=== PATIENT | female | born 1945 | race Caucasian/White ===

== ENCOUNTER 2019-11-08 07:44 | Observation (INO) | payer MEDICARE ==
[2019-11-08 08:42] LABS: #Eosinphils 0.1 thou/uL (0.0-0.7); #Monocytes 0.7 thou/uL (0.11-0.59); #Neutrophils 5.1 thou/uL (1.40-6.50); %Basophils 0.1 % (0.0-1.0); %Eosinophils 1.5 % (0.0-10.0); %Lymphocytes 14.2 % (21.0-51.0); %Monocytes 10.4 % (0.0-10.0); %Neutrophils 73.8 % (42.0-75.0); Mean Corpuscular HGB CONC 33.7 g/dL (32.0-36.0); Mean Corpuscular Hemoglobin 31.7 pg (27.0-31.0); Mean Corpuscular Volume 94.1 fL (78.0-98.0); Mean Platelet Volume 9.9 fL (7.4-10.4); Platelet Count 125 thou/uL (130-400); RBC Distribution Width 13.1 % (11.5-14.5); Red Blood Cell (RBC) Count 4.73 mill/uL (4.20-5.40); White Blood Cell (WBC) Count 6.9 thou/uL (4.8-10.8)
[2019-11-08 08:48] LABS: ALT (SGPT) 22 U/L (8-55); AST (SGOT) 25 U/L (5-34); Albumin 3.9 g/dL (3.4-4.8); Alcohol Less than 10 mg/dL (Less than 10); Alkaline Phosphatase 76 U/L (40-110); Anion Gap 13 mmol/L (10-20); BUN (Urea Nitrogen) 12 mg/dL (9.8-20.1); Bilirubin, Total 0.6 mg/dL (0.2-1.2); Calc. Creatinine Clearance 0 mL/min (70-130); Calcium 9.1 mg/dL (7.8-10.44); Carbon Dioxide 23 mmol/L (23-31); Chloride 110 mmol/L (98-107); Estimated GFR-MDRD 69; Globulin 2.3 g/dL (2.4-3.5); Glucose 110 mg/dL (83-110); Protein, Total 6.2 g/dL (6.0-8.3); Sodium 143 mmol/L (136-145)
[2019-11-08 08:51] LABS: Potassium 2.7 mmol/L (3.5-5.1)
--- NOTE | 2019-11-08 09:04 | CT ---
EXAM: CT brain without contrast HISTORY: Altered mental status COMPARISON: None TECHNIQUE: Multiple contiguous axial images were obtained and a CT of the brain without contrast. FINDINGS: There are hypodense regions in the left temporal lobe and right parietal lobe. Minimal volu me loss is seen in these could represent subacute rather than remote infarctions. There is no evidence of hydrocephalus, intracranial hemorrhage, or extra-axial fluid collection. The calvarium and overlying soft tissues are unremarkable. The visualized paranasal sinuses and masto id air cells are well aerated. IMPRESSION: Subacute versus remote infarctions in the left temporal and right parietal lobes. An MRI of the brain is recommended for further characterization.
[2019-11-08 09:07] LABS: Bilirubin Negative (Negative); Blood, Urine Trace (Negative); Clarity Turbid (Clear); Glucose, Urine (Dipstick) Normal (Negative); Leukocyte 75 Leu/uL (Negative); Nitrite 1+ (Negative); Protein, Urine (Dipstick) 10 mg/dL (Neg-Trace); RBC/HPF 0-3 HPF (0-3)
[2019-11-08 09:08] LABS: Bacteria/HPF 1+ HPF (None Seen)
[2019-11-08] MEDS ORDERED: Potassium Chloride 20 MEQ TAB ONE (09:08)
[2019-11-08] MEDS ORDERED: Adacel (T-DAP) 0.5 ML SYRINGE ONE (09:08)
[2019-11-08 09:34] LABS: Amphetamine Not Detected (NotDetected); Benzodiazepine Screen Detected (NotDetected); Cocaine Metabolite Screen Not Detected (NotDetected); Medtox Reader # READER 1; Methamphetamine Not Detected (NotDetected); Opiate Screen Not Detected (NotDetected); Phencyclidine (PCP) Not Detected (NotDetected); THC/Cannabinoid Screen Not Detected (NotDetected)
[2019-11-08 09:35] LABS: Barbiturates Screen Detected (NotDetected); Medtox Control Line Valid? VALID (VALID); Methadone Not Detected (NotDetected); Oxycodone Screen Not Detected (NotDetected); Tricyclic Screen Detected (NotDetected)
[2019-11-08] MEDS ORDERED: Ondansetron PF 4 MG/2 ML Vial IVP PRN (09:55)
[2019-11-08] MEDS ORDERED: Acetaminophen 325 MG TAB PO PRN (09:55)
[2019-11-08 10:24] LABS: INR-International Normal Ratio 1.6; PTT 32.3 sec (22.9-36.1); Prothrombin Time 19.4 sec (12.0-14.7)
[2019-11-08] MEDS ORDERED: Aspirin Chewable 81 MG TAB ONE (10:40)
[2019-11-08] MEDS ORDERED: Enoxaparin Sodium 40 MG/0.4 ML SYRINGE SC SCH (10:45)
[2019-11-08] MEDS ORDERED: Potassium Chloride 40 MEQ in Sodium Chloride 0.9% 250 ML 250 ML IVPB SCH (10:45)
--- NOTE | 2019-11-08 11:36 | CT ---
CT CERVICAL SPINE WITHOUT CONTRAST: HISTORY: Probable fall. Neck pain. FINDINGS: There are degenerative changes in the cervical spine with loss of cervical lordosis. There is minimal anterolisthesis of the C4 over C5 vertebrae. No acute fracture, subluxation or facet malalignment is seen. POS: MZA
[2019-11-08] MEDS ORDERED: cefTRIAXone\\ROCEPHIN 1 GM VIAL ONE (11:50)
[2019-11-08] MEDS ORDERED: Ondansetron ODT 4 MG TAB SL PRN (13:04)
[2019-11-08] MEDS: NS 0.9% w/ 40 MEQ KCL 1,000 ML IV SCH ×2 (14:00→18:18)
[2019-11-08] MEDS: Warfarin Sodium 10 MG TAB PO SCH (15:38)
[2019-11-08] MEDS: Lorazepam 1 MG TAB PO PRN ×2 (15:38→21:13)
[2019-11-08] MEDS: Warfarin Sodium 2.5 MG TAB PO SCH (15:38)
[2019-11-08] MEDS: busPIRone HCl 10 MG TAB PO SCH ×2 (15:38→21:12)
--- NOTE | 2019-11-08 20:23 | HP ---
CHIEF COMPLAINT: Transferred to the hospital for confusion. HISTORY OF PRESENT ILLNESS: The patient is a 74-year-old female with past medical history of prior CVA, early dementia, COPD, CHF, atrial fibrillation, diabetes mellitus, and GERD. The patient also has history of schizophrenia. EMS was called by the patient's caregiver due to worsening confusion. She was brought to the ER where her initial workup was unremarkable apart from hypokalemia and positive urinalysis. During my interview, the patient was alert and oriented. She denied any complaint at this time. She was given potassium in the ER and was started on IV antibiotics. PAST MEDICAL HISTORY: As noted above. PAST SURGICAL HISTORY: Unclear as the patient is not a reliable historian. ALLERGIES: THE PATIENT IS ALLERGIC TO CODEINE. PHYSICAL EXAMINATION: GENERAL: The patient is alert and oriented. HEENT: Head is normocephalic and atraumatic. Extraocular muscles are intact. NECK: Supple. CHEST: Clear to auscultation bilaterally. CARDIOVASCULAR: Revealed normal S1, S2. No murmurs, rubs, or gallops. ABDOMEN: Soft, nontender, nondistended, and bowel sounds are audible. EXTREMITIES: Showing no edema and pulses are present. NEUROLOGIC: Examination did not show any deficits. ASSESSMENT: 1. Altered mental status that is acute on chronic. 2. Acute urinary tract infection. 3. History of congestive heart failure that appears to be stable. 4. Atrial fibrillation, on Coumadin. 5. Diabetes mellitus, type 2. 6. Cerebrovascular accident x2 in the past. 7. Schizophrenia. PLAN: The patient will be placed in observation and started on IV ceftriaxone. She does not have any features of sepsis. After the period of observation, the patient can be discharged safely as long as her mental status returns to baseline. Job ID: [id number]
[2019-11-08] MEDS ORDERED: Potassium Chloride 20 MEQ TAB PO SCH (20:30)
[2019-11-08] MEDS ORDERED: Topiramate 100 MG TAB PO SCH (21:00)
[2019-11-08] MEDS ORDERED: cefTRIAXone\\ROCEPHIN 1 GM in Sodium Chloride 0.9% 100 ML IVPB SCH (21:00)
[2019-11-08] MEDS: levETIRAcetam 500 MG TAB PO SCH (21:12)
[2019-11-08] MEDS ORDERED: Albuterol 200 PUFF (6.7GM INHALER) INH PRN (23:00)
[2019-11-09 06:13] LABS: INR-International Normal Ratio 1.5; Prothrombin Time 17.9 sec (12.0-14.7)
[2019-11-09 06:31] LABS: Anion Gap 13 mmol/L (10-20); BUN (Urea Nitrogen) 11 mg/dL (9.8-20.1); Calc. Creatinine Clearance 89 mL/min (70-130); Calcium 8.1 mg/dL (7.8-10.44); Carbon Dioxide 19 mmol/L (23-31); Chloride 115 mmol/L (98-107); Estimated GFR-MDRD 71; Glucose 144 mg/dL (83-110); Potassium 3.4 mmol/L (3.5-5.1); Sodium 144 mmol/L (136-145)
[2019-11-09 07:23] LABS: Hemoglobin 13.5 g/dL (12.0-16.0); Mean Corpuscular HGB CONC 33.8 g/dL (32.0-36.0); Mean Corpuscular Hemoglobin 32.2 pg (27.0-31.0); Mean Corpuscular Volume 95.3 fL (78.0-98.0); Platelet Count 118 thou/uL (130-400); RBC Distribution Width 13.2 % (11.5-14.5); White Blood Cell (WBC) Count 5.7 thou/uL (4.8-10.8)
[2019-11-09 07:24] LABS: #Eosinphils 0.1 thou/uL (0.0-0.7); #Lymphocytes 0.9 thou/uL (1.20-3.40); #Monocytes 0.6 thou/uL (0.11-0.59); %Basophils 0.3 % (0.0-1.0); %Eosinophils 2.5 % (0.0-10.0); %Lymphocytes 16.3 % (21.0-51.0); %Neutrophils 70.8 % (42.0-75.0)
[2019-11-09 07:26] LABS: MDiff Complete? YES
--- NOTE | 2019-11-09 08:23 | PDOC.HOSPP ---
- Subjective Encounter Date: 11/09/19 Encounter Time: 13:00 Subjective: Patient without complaint. Does state she wants to go back to [place]. Doesn' t like having to stay with her son because they won't let her leave. She was found crawling out of the house under a barbed wire fence. Patient isn't oriented to place, or time. Does know she is somewhere in [place] and her name. Spoke with Daughter in law and she states patient has had progressive dementia for 10-12 years, was living by self until hospitalized for strokes earlier this year. Tried to break out of prison after that x4 so came to live with son. She has been doing the same down here. They are trying to get her into a prison. - Objective Vital Signs & Weight: Vital Signs (12 hours) Temp Pulse Resp BP Pulse Ox 11/09/19 07:40 97.6 F 80 17 107/70 100 11/09/19 04:00 98.0 F 72 20 110/65 95 11/08/19 23:26 97.7 F 81 20 95/58 L 94 L Weight Weight 196 lb I&O: 11/08/19 11/09/19 11/10/19 06:59 06:59 06:59 Intake Total 960 Output Total 2 Balance 958 Result Diagrams: 11/09/19 05:17 11/09/19 05:17 Hospitalist ROS - Review of Systems ROS unobtainable: due to mental status - Medication Medications: Active Medications Generic Name Dose Route Start Last Admin Trade Name Freq PRN Reason Stop Dose Admin Buspirone HCl 10 mg 11/08/19 15:00 11/08/19 21:12 Buspar PO 10 mg TID GORDON Administration Ceftriaxone Sodium 1 gm/ 100 mls @ 200 mls/hr 11/08/19 21:00 11/08/19 21:19 Sodium Chloride IVPB 100 mls Q24HR GORDON Administration Levetiracetam 500 mg 11/08/19 21:00 11/08/19 21:12 Keppra PO 500 mg BID GORDON Administration Lorazepam 1 mg 11/08/19 14:08 11/08/19 21:13 Ativan PO 1 mg QIDPRN PRN Administration Agitation Phenytoin Sodium 30 mg 11/08/19 15:00 11/08/19 21:12 Dilantin PO 30 mg TID GORDON Administration Pneumococcal 13-Valent Conj Vacc 0.5 ml 11/09/19 09:00 11/09/19 07:55 Prevnar IM 11/09/19 09:01 Not Given .ONCE ONE Quetiapine Fumarate 75 mg 11/08/19 21:00 11/08/19 21:13 Seroquel PO 75 mg BID GORDON Administration Warfarin Sodium 10 mg 11/08/19 17:00 11/08/19 15:38 Coumadin PO 10 mg 1700 GORDON Administration Warfarin Sodium 2.5 mg 11/08/19 17:00 11/08/19 15:38 Coumadin PO 2.5 mg 1700 GORDON Administration - Exam General Appearance: NAD, awake alert ENT: moist mucosa Heart: RRR, no murmur, no gallops, no rubs Respiratory: CTAB, no wheezes, no rales, no ronchi Gastrointestinal: soft, non-tender, non-distended, normal bowel sounds Psychiatric: normal affect, oriented to person. negative: oriented to place, oriented to time Hosp A/P (1) Dementia Code(s): F03.90 - UNSPECIFIED DEMENTIA WITHOUT BEHAVIORAL DISTURBANCE Status: Chronic (2) Acute metabolic encephalopathy Code(s): G93.41 - METABOLIC ENCEPHALOPATHY Status: Acute (3) UTI (urinary tract infection) Status: Acute (4) CHF (congestive heart failure) Code(s): I50.9 - HEART FAILURE, UNSPECIFIED Status: Chronic Qualifiers: Heart failure type: unspecified Heart failure chronicity: chronic Qualified Code(s): I50.9 - Heart failure, unspecified (5) Atrial fibrillation Code(s): I48.91 - UNSPECIFIED ATRIAL FIBRILLATION Status: Chronic (6) Chronic anticoagulation Code(s): Z79.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 Can switch to oral antibiotics and d/c back home with son or to prison if they can find one for her.
[2019-11-09] MEDS ORDERED: Potassium Chloride 20 MEQ TAB PO SCH (08:30)
[2019-11-09] MEDS ORDERED: Enoxaparin Sodium 40 MG/0.4 ML SYRINGE SC SCH (09:00)
[2019-11-09] MEDS ORDERED: Prevnar 13-Val Conj/PF 0.5 ML SYRINGE IM ONE (09:00)
[2019-11-09] MEDS ORDERED: Topiramate 25 MG TAB PO SCH (09:00)
[2019-11-09] MEDS: Atenolol 50 MG TAB PO SCH (10:50)
[2019-11-09] MEDS: Topiramate 100 MG TAB PO SCH (10:51)
[2019-11-09] MEDS: Topiramate 25 MG TAB PO SCH (10:51)
[2019-11-09] MEDS: Atorvastatin Calcium 40 MG TAB PO SCH (10:52)
[2019-11-09] MEDS: Nicotine 21 MG PATCH TD SCH (10:54)
[2019-11-09] MEDS: busPIRone HCl 10 MG TAB PO SCH ×3 (10:54→19:49)
[2019-11-09] MEDS: Furosemide 20 MG TAB PO SCH (10:54)
[2019-11-09] MEDS: levETIRAcetam 500 MG TAB PO SCH ×2 (10:54→19:49)
[2019-11-09] MEDS: Warfarin Sodium 2.5 MG TAB PO SCH (16:10)
[2019-11-09] MEDS: Warfarin Sodium 10 MG TAB PO SCH (16:10)
[2019-11-09] MEDS: Nitrofurantoin Monohyd/M-Cryst 100 MG CAP PO SCH (19:50)
[2019-11-09] MEDS: Lorazepam 1 MG TAB PO PRN (19:51)
[2019-11-10 05:59] LABS: INR-International Normal Ratio 1.6; Prothrombin Time 18.9 sec (12.0-14.7)
--- NOTE | 2019-11-10 08:07 | PDOC.HOSPP ---
- Subjective Encounter Date: 11/10/19 Encounter Time: 10:00 Subjective: Patient without complaints. Wants to go home to [place]. Not oriented to time or situation. Spoke with [id number] Karime and updated her on the patient. Ready for discharge. Trying to get patient into [facility], been working on it for the past couple weeks. Will try and get in today or tomorrow, otherwise will need to go back home while permanent placement set up. - Objective Vital Signs & Weight: Vital Signs (12 hours) Temp Pulse Resp BP Pulse Ox 11/10/19 07:57 98.3 F 70 20 114/71 96 Weight Weight 196 lb I&O: 11/09/19 11/10/19 11/11/19 06:59 06:59 06:59 Intake Total 960 Output Total 2 Balance 958 Result Diagrams: 11/09/19 05:17 11/09/19 05:17 Hospitalist ROS - Review of Systems Constitutional: denies: fever, chills Respiratory: denies: cough, shortness of breath Cardiovascular: denies: chest pain, palpitations Gastrointestinal: denies: nausea, vomiting, abdominal pain - Medication Medications: Active Medications Generic Name Dose Route Start Last Admin Trade Name Freq PRN Reason Stop Dose Admin Atenolol 25 mg 11/09/19 09:00 11/09/19 10:50 Tenormin PO 25 mg DAILY GORDON Administration Atorvastatin Calcium 20 mg 11/09/19 09:00 11/09/19 10:52 Lipitor PO 20 mg DAILY GORDON Administration Buspirone HCl 10 mg 11/08/19 15:00 11/09/19 19:49 Buspar PO 10 mg TID GORDON Administration Furosemide 20 mg 11/09/19 09:00 11/09/19 10:54 Lasix PO 20 mg DAILY GORDON Administration Levetiracetam 500 mg 11/08/19 21:00 11/09/19 19:49 Keppra PO 500 mg BID GORDON Administration Lorazepam 1 mg 11/08/19 14:08 11/09/19 19:51 Ativan PO 1 mg QIDPRN PRN Administration Agitation Nicotine 21 mg 11/09/19 09:00 11/09/19 10:54 Nicoderm Patch TD Not Given DAILY GORDON Nitrofurantoin Macrocrystals 100 mg 11/09/19 21:00 11/09/19 19:50 Macrobid PO 100 mg BID GORDON Administration Ondansetron HCl 4 mg 11/08/19 09:55 11/09/19 08:51 Zofran IVP 4 mg Q6H PRN Administration Nausea/Vomiting Phenytoin Sodium 30 mg 11/08/19 15:00 11/09/19 19:50 Dilantin PO 30 mg TID GORDON Administration Quetiapine Fumarate 75 mg 11/08/19 21:00 11/09/19 19:50 Seroquel PO 75 mg BID GORDON Administration Topiramate 100 mg 11/09/19 09:00 11/09/19 10:51 Topamax PO 100 mg DAILY GORDON Administration Topiramate 50 mg 11/09/19 09:00 11/09/19 10:51 Topamax PO 50 mg DAILY GORDON Administration Venlafaxine HCl 112.5 mg 11/09/19 09:00 11/09/19 10:53 Effexor PO 112.5 mg DAILY GORDON Administration Warfarin Sodium 10 mg 11/08/19 17:00 11/09/19 16:10 Coumadin PO 10 mg 1700 GORDON Administration Warfarin Sodium 2.5 mg 11/08/19 17:00 11/09/19 16:10 Coumadin PO 2.5 mg 1700 GORDON Administration - Exam General Appearance: NAD, awake alert ENT: moist mucosa Heart: RRR, no murmur, no gallops, no rubs Respiratory: CTAB, no wheezes, no rales, no ronchi Gastrointestinal: soft, non-tender, non-distended, normal bowel sounds Psychiatric: normal affect, oriented to person. negative: oriented to place, oriented to time Hosp A/P (1) Dementia Code(s): F03.90 - UNSPECIFIED DEMENTIA WITHOUT BEHAVIORAL DISTURBANCE Status: Chronic (2) Acute metabolic encephalopathy Code(s): G93.41 - METABOLIC ENCEPHALOPATHY Status: Acute (3) UTI (urinary tract infection) Status: Acute (4) CHF (congestive heart failure) Code(s): I50.9 - HEART FAILURE, UNSPECIFIED Status: Chronic Qualifiers: Heart failure type: unspecified Heart failure chronicity: chronic Qualified Code(s): I50.9 - Heart failure, unspecified (5) Atrial fibrillation Code(s): I48.91 - UNSPECIFIED ATRIAL FIBRILLATION Status: Chronic (6) Chronic anticoagulation Code(s): 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 Can switch to oral antibiotics and d/c back home with son or to jail if they can find one for her. Plan on trying to arrange [facility] today or tomorrow. If can't get done then will need to go back home first.
[2019-11-10] MEDS: Nicotine 21 MG PATCH TD SCH (08:17)
[2019-11-10] MEDS: Atenolol 50 MG TAB PO SCH (08:20)
[2019-11-10] MEDS: busPIRone HCl 10 MG TAB PO SCH ×3 (08:21→20:27)
[2019-11-10] MEDS: Atorvastatin Calcium 40 MG TAB PO SCH (08:23)
[2019-11-10] MEDS: Nitrofurantoin Monohyd/M-Cryst 100 MG CAP PO SCH ×2 (08:23→20:27)
[2019-11-10] MEDS: Furosemide 20 MG TAB PO SCH (08:23)
[2019-11-10] MEDS: levETIRAcetam 500 MG TAB PO SCH ×2 (08:24→20:27)
[2019-11-10] MEDS: Topiramate 100 MG TAB PO SCH (08:24)
[2019-11-10] MEDS: Topiramate 25 MG TAB PO SCH (08:24)
[2019-11-10] MEDS: Warfarin Sodium 10 MG TAB PO SCH (16:13)
[2019-11-10] MEDS: Warfarin Sodium 2.5 MG TAB PO SCH (16:14)
[2019-11-10] MEDS: Lorazepam 1 MG TAB PO PRN (20:27)
[2019-11-11 06:42] LABS: INR-International Normal Ratio 1.8
[2019-11-11 07:18] VITALS: BP 130/73; TEMP 97.7
--- NOTE | 2019-11-11 07:44 | PDOC.HOSPP ---
- Subjective Encounter Date: 11/11/19 Encounter Time: 09:20 Subjective: Patient without complaints. Still very confused, not oriented, adamant she wants to go back to live at home in [place]. Poor insight into situation and not mentally competent. - Objective Vital Signs & Weight: Vital Signs (12 hours) Temp Pulse Resp BP BP Pulse Ox 11/11/19 07:15 97.7 F 64 18 130/73 92 L 11/11/19 04:00 97.9 F 68 18 124/77 93 L 11/10/19 20:00 98.0 F 60 18 128/74 96 Weight Weight 195 lb I&O: 11/10/19 11/11/19 11/12/19 06:59 06:59 06:59 Intake Total 350 Balance 350 Result Diagrams: 11/09/19 05:17 11/09/19 05:17 Hospitalist ROS - Review of Systems Constitutional: denies: fever, chills Respiratory: denies: cough, shortness of breath Cardiovascular: denies: chest pain, palpitations Gastrointestinal: denies: nausea, vomiting Genitourinary: denies: dysuria - Medication Medications: Active Medications Generic Name Dose Route Start Last Admin Trade Name Freq PRN Reason Stop Dose Admin Atenolol 25 mg 11/09/19 09:00 11/10/19 08:20 Tenormin PO 25 mg DAILY GORDON Administration Atorvastatin Calcium 20 mg 11/09/19 09:00 11/10/19 08:23 Lipitor PO 20 mg DAILY GORDON Administration Buspirone HCl 10 mg 11/08/19 15:00 11/10/19 20:27 Buspar PO 10 mg TID GORDON Administration Furosemide 20 mg 11/09/19 09:00 11/10/19 08:23 Lasix PO 20 mg DAILY GORDON Administration Levetiracetam 500 mg 11/08/19 21:00 11/10/19 20:27 Keppra PO 500 mg BID GORDON Administration Lorazepam 1 mg 11/08/19 14:08 11/10/19 20:27 Ativan PO 1 mg QIDPRN PRN Administration Agitation Nicotine 21 mg 11/09/19 09:00 11/10/19 08:17 Nicoderm Patch TD Not Given DAILY GORDON Nitrofurantoin Macrocrystals 100 mg 11/09/19 21:00 06/23/20 20:27 Macrobid PO 100 mg BID GORDON Administration Ondansetron HCl 4 mg 11/08/19 09:55 11/09/19 08:51 Zofran IVP 4 mg Q6H PRN Administration Nausea/Vomiting Phenytoin Sodium 30 mg 11/08/19 15:00 11/10/19 20:27 Dilantin PO 30 mg TID GORDON Administration Quetiapine Fumarate 75 mg 11/08/19 21:00 11/10/19 20:27 Seroquel PO 75 mg BID GORDON Administration Topiramate 100 mg 11/09/19 09:00 11/10/19 08:24 Topamax PO 100 mg DAILY GORDON Administration Topiramate 50 mg 11/09/19 09:00 11/10/19 08:24 Topamax PO 50 mg DAILY GORDON Administration Venlafaxine HCl 112.5 mg 11/09/19 09:00 11/10/19 08:21 Effexor PO 112.5 mg DAILY GORDON Administration Warfarin Sodium 10 mg 11/08/19 17:00 11/10/19 16:13 Coumadin PO 10 mg 1700 GORDON Administration Warfarin Sodium 2.5 mg 11/08/19 17:00 11/10/19 16:14 Coumadin PO 2.5 mg 1700 GORDON Administration - Exam General Appearance: NAD, awake alert ENT: moist mucosa Heart: RRR, no murmur, no gallops, no rubs Respiratory: CTAB, no wheezes, no rales, no ronchi Gastrointestinal: soft, non-tender, non-distended, normal bowel sounds Psychiatric: oriented to person. negative: oriented to place, oriented to time Hosp A/P (1) Dementia Code(s): F03.90 - UNSPECIFIED DEMENTIA WITHOUT BEHAVIORAL DISTURBANCE Status: Chronic (2) Acute metabolic encephalopathy Code(s): G93.41 - METABOLIC ENCEPHALOPATHY Status: Acute (3) UTI (urinary tract infection) Status: Acute (4) CHF (congestive heart failure) Code(s): I50.9 - HEART FAILURE, UNSPECIFIED Status: Chronic Qualifiers: Heart failure type: unspecified Heart failure chronicity: chronic Qualified Code(s): I50.9 - Heart failure, unspecified (5) Atrial fibrillation Code(s): I48.91 - UNSPECIFIED ATRIAL FIBRILLATION Status: Chronic (6) Chronic anticoagulation Code(s): Z79.01 - CUSTODIAL (CURRENT) USE OF ANTICOAGULANTS Status: Chronic (7) Diabetes mellitus Code(s): E11.9 - TYPE 2 DIABETES MELLITUS WITHOUT COMPLICATIONS Status: Chronic Qualifiers: Diabetes mellitus type: type 2 (8) History of CVA (cerebrovascular accident) Code(s): Z86.73 - PRSNL HX OF TIA (TIA), AND CEREB INFRC W/O RESID DEFICITS Status: Chronic (9) Schizophrenia Code(s): F20.9 - SCHIZOPHRENIA, UNSPECIFIED Status: Chronic - Plan Patient appears to be baseline mental status. Can switch to oral antibiotics and will d/c to [facility] today.
[2019-11-11] MEDS: Atenolol 50 MG TAB PO SCH (07:50)
[2019-11-11] MEDS: Atorvastatin Calcium 40 MG TAB PO SCH (07:53)
[2019-11-11] MEDS: busPIRone HCl 10 MG TAB PO SCH (07:53)
[2019-11-11] MEDS: Topiramate 25 MG TAB PO SCH (07:54)
[2019-11-11] MEDS: Topiramate 100 MG TAB PO SCH (07:54)
[2019-11-11] MEDS: levETIRAcetam 500 MG TAB PO SCH (07:55)
[2019-11-11] MEDS: Nitrofurantoin Monohyd/M-Cryst 100 MG CAP PO SCH (07:56)
[2019-11-11] MEDS: Nicotine 21 MG PATCH TD SCH ×2 (07:56→08:10)
[2019-11-11] MEDS: Furosemide 20 MG TAB PO SCH (07:56)
[2019-11-11 13:02] VITALS: BMI 33.6
--- NOTE | 2019-11-12 01:24 | DIS ---
DATE OF ADMISSION: 11/08/2019 DATE OF DISCHARGE: 11/11/2019 PRIMARY CARE PHYSICIAN: Mekhi Mcclendon. REASON FOR ADMISSION: Altered mental status. DIAGNOSES AT DISCHARGE: 1. Dementia. 2. Acute metabolic encephalopathy, resolved. 3. Urinary tract infection. 4. Chronic congestive heart failure. 5. Atrial fibrillation. 6. Chronic anticoagulation. 7. Diabetes mellitus, type 2. 8. History of cerebrovascular accident. 9. Schizophrenia. PROCEDURES PERFORMED: CT of the brain without contrast showing subacute versus remote infarct in the left temporal and right parietal lobes. No acute findings. CONSULTATIONS: None. SUMMARY OF HOSPITAL COURSE: This is a 74-year-old female with a history of dementia for the last 10 to 12 years progressive, then with strokes in May of this year. She has had progressive decline, had to be declared incompetent and was put in nursing facility of the [facility] where she is from. However, she kept escaping from that eventually, guardianship was given over to her son and she was down here to [place]. Here, they have put locks in all the doors and alarms and make sure to shut off the stove and everything else when they are not using it. However, patient continues to break out of the house. She was found crawling. There was some barbed wire and was brought in by EMS. There was initial concern she might have altered mental status and she was diagnosed with urinary tract infection. However, on review of her chronic declining mental status with her family, it was determined she is actually at her baseline. On speaking with son and [id number], it was determined the patient is not safe to continue living with them. They have been trying to get her into a locked unit, however, having difficulty doing that. We did have the case filler look for several facilities and were eventually able to get her accepted to [facility]. She is being discharged there today. DISCHARGE MANAGEMENT: Discharged to [facility]. ACTIVITY: As tolerated. DIET: Diabetic diet with healthy heart diet. No therapies necessary. DISCHARGE MEDICATIONS: 1. Macrobid 100 mg twice a day for 7 days. 2. Albuterol as needed. 3. Atenolol 25 mg daily. 4. Atorvastatin 20 mg at night. 5. Buspirone 10 mg 3 times a day. 6. Furosemide 20 mg daily. 7. 500 mg twice a day. 8. Lorazepam 1 mg 4 times a day. 9. Dilantin 30 mg 3 times a day. 10. Seroquel 75 mg twice a day. 11. Seroquel at night as needed. 12. Topiramate 150 mg daily. 13. Venlafaxine 1.5 tablets of 75 mg daily. 14. Warfarin 12.5 mg daily. Job ID: [id number]
--- NOTE | 2019-11-15 12:19 | EKG ---
Test Reason : EMERGENCY EXAM Blood Pressure : / mmHG Vent. Rate : 071 BPM Atrial Rate : 394 BPM P-R Int : 000 ms QRS Dur : 096 ms QT Int : 424 ms P-R-T Axes : 000 087 025 degrees QTc Int : 460 ms Atrial fibrillation Abnormal ECG Confirmed by RADAMES GAUTHIER ([id number]), food editor RACHAEL ADORNO ([id number]) on 11/15/2019 12:18:51 PM Referred By: Confirmed By:RADAMES GAUTHIER
== END 2019-11-11 15:06 ==
LOC: ERS 07:44 → T4-A 12:33
PROVIDERS: ADMIT Internal Medicine; ATTEND Internal Medicine
DX: F03.90 Unspecified dementia, unspecified severity, without behavioral disturbance, psychotic disturbance, mood disturbance, and anxiety (principal); G93.41 Metabolic encephalopathy; N39.0 Urinary tract infection, site not specified; I50.9 Heart failure, unspecified; I48.20 Chronic atrial fibrillation, unspecified; E11.9 Type 2 diabetes mellitus without complications; F20.9 Schizophrenia, unspecified; J44.9 Chronic obstructive pulmonary disease, unspecified; K21.9 Gastro-esophageal reflux disease without esophagitis; Z86.73 Personal history of transient ischemic attack (TIA), and cerebral infarction without residual deficits; Z79.01 Long term (current) use of anticoagulants; Z79.899 Other long term (current) drug therapy; Z88.5 Allergy status to narcotic agent; Z91.018 Allergy to other foods
CPT/HCPCS: 36415; 70450; 72125; 80048; 80053; 80306; 80307; 81003; 81015; 84443; 84484; 85025; 85610; 85730; 87040; 90471; 90715; 93005; 96360; 96365; 96375; 96376; G0378; J0696; J2405; J3480; J3490; J7050

== ENCOUNTER 2019-12-10 23:53 | Emergency (ER) | payer MEDICARE ==
--- NOTE | 2019-12-11 07:20 | RAD ---
RADIOGRAPH CHEST 1 VIEW: DATE: 12/11/2019 HISTORY: 74-year-old female with chest pain FINDINGS: There are no airspace densities, pulmonary edema, pneumothorax, or cardiomegaly. The lateral costophr enic angles are sharp. Sternotomy wires. IMPRESSION: No acute cardiopulmonary findings.
--- NOTE | 2019-12-11 07:33 | RAD ---
RADIOGRAPH RIGHT WRIST 3 VIEWS: DATE: 12/11/2019 HISTORY: 74-year-old female status post acute penetrating trauma to right wrist FINDINGS: No fracture is identified. However, if there is snuffbox tenderness following trauma that suggests an occult scaphoid fracture, then the general recommendation is immobilization and follow-up imaging in 5-10 days. Alignment is normal. Joint spaces are maintained without erosions or large osteophytes. There are no abnormal soft tissue calcifications. No evidence of periostitis, permeative lesion, osteolytic lesion, or osteoblastic lesion. There is diffuse osteopenia. No radiopaque foreign body. T here is mild soft tissue swelling of the wrist. No subcutaneous emphysema. IMPRESSION: 1. Osteoporosis. 2. Otherwise negative.
== END 2019-12-11 01:30 ==
LOC: ERS 23:53
DX: S60.511A Abrasion of right hand, initial encounter (principal); F20.9 Schizophrenia, unspecified; J44.9 Chronic obstructive pulmonary disease, unspecified; E11.9 Type 2 diabetes mellitus without complications; Z86.73 Personal history of transient ischemic attack (TIA), and cerebral infarction without residual deficits; I50.9 Heart failure, unspecified; I48.91 Unspecified atrial fibrillation; K21.9 Gastro-esophageal reflux disease without esophagitis; G47.00 Insomnia, unspecified; F41.9 Anxiety disorder, unspecified; F32.9 Major depressive disorder, single episode, unspecified; X58.XXXA Exposure to other specified factors, initial encounter
CPT/HCPCS: 71045